=== PATIENT | male | born 1960 | race Caucasian/White ===

== ENCOUNTER → 2020-03-05 | Outpatient (CLI) | payer OTHER ==
--- NOTE | 2020-03-06 08:26 | CT ---
EXAM DESCRIPTION: Abdomen/Pelvis w/wo Contrast: Computed Tomography. CLINICAL HISTORY: HEMATURIA COMPARISON: None. TECHNIQUE: Spiral-axial scans at 5 x 5 mm intervals through the abdomen and pelvis before and after 75 mL Optiray 320 nonionic IV contrast. No oral contrast. Coronal and sagittal 2.0 mm reconstructions. 5 mm, and 5 minute Delayed helical-axial scans, liver through the pubic symphysis. No adverse reactions. Total Exam DLP 2265 mGy - cm. This exam was performed according to our departmental CT dose-optimization program which includes automated exposure control, adjustment of the mA and/or kV according to patient size and/or use of iterative reconstruction technique; to reduce radiation dose to as low as reasonably achievable (ALARA). FINDINGS: Lung bases and pleura: Negative. Liver, Stomach, Spleen, Adrenal Glands: Long axis right lobe liver 18.1 cm. Diffusely low-density. No focal lesions or abnormal contrast enhancement. Otherwise unremarkable. Pancreas, Gallbladder, Ducts: Gallbladder visualized. Otherwise negative. Kidneys and Ureters: Small focal low-density nonenhancing object cortex of the mid left kidney, otherwise unremarkable. Elongated 4.8 mm cyst radiodense stone versus series of stones in the right ureter in the mid pelvis anterior to the proximal right external iliac artery and vein and medial to the distal right psoas muscle on images 59 and 60 on axial series 2. The right ureter proximal to this site is minimally distended on the delayed images, but there is no periureteral edema. Left ureter is unremarkable. Mesentery: No free fluid or free air. No fascial thickening or fatty stranding. Aorta: Moderate atherosclerotic calcification extending into the bilateral iliac branches. Small Bowel: Gas and minimal fluid with small air-fluid levels but no stone or transition and no obstruction. Terminal Ileum/Cecum: Located in the mid Central pelvis abutting the urinary bladder dome. Normal caliber including the appendix with no inflammatory changes. Colon: Distal more than proximal diverticula with no distention and no complications. Pelvic Organs: Minimal distention urinary bladder with no radiodense stones. No mass effect on the dependent contrast layer on the posterior wall of the bladder on the delayed images. No wall thickening. Prostate calcification with no free fluid. Spine and Bony Pelvis: Subchondral radiolucencies more in the right hip in the left with superior right hip joint space narrowing. Spondylosis of the lower thoracic and upper lumbar spine with diffuse bulging disc L5-S1 and significant canal or foraminal narrowing. Abdominal Wall/Back Soft Tissues: Bilateral small fatty inguinal hernias not containing bowel. IMPRESSION: 1. Elongated stone or series of small stones measuring almost 5 mm in the right ureter, at the level of the in the mid pelvis anterior to the right external iliac artery and vein. Minimal distention of the proximal ureter on the delayed postcontrast images. No radiodense stones in the kidneys bilaterally or hydronephrosis. Bladder is unremarkable. 2. Steatosis of the liver with mild hepatomegaly. 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 Diffusely bulging disc at L5-S1. Bilateral small fatty inguinal hernias not containing bowel. Mild diverticulosis: without complications. Electronically signed by: Luis Conner MD 03/06/2020 8:25 AM CDT
== END ==
LOC: CT 13:28
PROVIDERS: ATTEND General Practice
DX: N20.1 Calculus of ureter (principal); N28.9 Disorder of kidney and ureter, unspecified; K76.0 Fatty (change of) liver, not elsewhere classified; M16.0 Bilateral primary osteoarthritis of hip; K40.20 Bilateral inguinal hernia, without obstruction or gangrene, not specified as recurrent; K57.30 Diverticulosis of large intestine without perforation or abscess without bleeding; M51.87 Other intervertebral disc disorders, lumbosacral region